=== PATIENT | male | born 1980 | race Caucasian/White ===

== ENCOUNTER 2016-10-15 18:07 | Emergency (ER) | payer MEDICARE | END 2016-10-15 18:30 | disposition home or self-care (01) | LOC: ER 18:07 | DX: L02.01 Cutaneous abscess of face (principal); F17.210 Nicotine dependence, cigarettes, uncomplicated ==

== ENCOUNTER 2016-10-17 20:26 | Emergency (ER) | payer MEDICARE | END 2016-10-17 21:21 | disposition home or self-care (01) | LOC: ER 20:26 | DX: L02.01 Cutaneous abscess of face (principal); F17.210 Nicotine dependence, cigarettes, uncomplicated ==